=== PATIENT | male | born 1985 | race Caucasian/White ===

== ENCOUNTER 2017-05-03 20:16 | Emergency (ER) | payer SELFPAY ==
[2017-05-03 22:10] VITALS: BP 132/74
== END 2017-05-03 22:10 | disposition home or self-care (01) ==
LOC: ED 20:16
DX: S39.012A Strain of muscle, fascia and tendon of lower back, initial encounter (principal); S00.212A Abrasion of left eyelid and periocular area, initial encounter; E11.9 Type 2 diabetes mellitus without complications; S00.211A Abrasion of right eyelid and periocular area, initial encounter; V49.88XA Car occupant (driver) (passenger) injured in other specified transport accidents, initial encounter; W22.10XA Striking against or struck by unspecified automobile airbag, initial encounter; Y93.89 Activity, other specified; Y92.89 Other specified places as the place of occurrence of the external cause; Y99.8 Other external cause status
CPT/HCPCS: 82962

== ENCOUNTER 2017-05-16 05:21 | Emergency (ER) | payer SELFPAY ==
[2017-05-16 06:30] VITALS: BP 153/110
== END 2017-05-16 06:20 | disposition home or self-care (01) ==
LOC: ED 05:21
DX: T16.2XXA Foreign body in left ear, initial encounter (principal); I10 Essential (primary) hypertension; E11.9 Type 2 diabetes mellitus without complications; X58.XXXA Exposure to other specified factors, initial encounter; Y93.89 Activity, other specified; Y99.8 Other external cause status; Y92.89 Other specified places as the place of occurrence of the external cause
CPT/HCPCS: J2001